=== PATIENT | female | born 1945 | race Caucasian/White ===

== ENCOUNTER 2016-10-11 11:05 | Emergency (ER) | payer MEDICARE ==
[2016-10-11 11:51] VITALS: BP 149/75
[2016-10-11] MEDS ORDERED: MECLIZINE HCL 25 MG TABLET PO ONE (13:26)
[2016-10-11 13:42] LABS: Hematocrit 43.8 % (37.0-47.0); Hemoglobin 14.8 gm/dL (12.5-16.0); Mean Cell Volume 89.6 fl (78-100); Mean Corpuscular Hemoglobin 30.3 pg (27-31); Mean Corpuscular Hgb Conc 33.8 g/dl (32-36); Mean Platelet Volume 9.4 fl (6.0-9.5); Neutrophil # 7.7 K/mm3 (1.3-6.0); Neutrophil % 63.9 % (42-75.0); Platelet Count 324 K/mm3 (150-450); Red Blood Count 4.89 M/mm3 (4.2-5.4); Red Cell Distribution Width 13.1 % (11.5-14.0); White Blood Count 12.1 K/mm3 (4.0-10.5)
[2016-10-11 14:01] LABS: Troponin I Less than 0.017 ng/ml (0.00-0.10)
[2016-10-11 14:04] LABS: ALT 26 U/L (19-67); AST 23 U/L (0-48); Albumin * 3.5 gm/dl (3.4-5.0); Alkaline Phosphatase * 70 U/L (50-170); Anion Gap 9.8 mmol/L (6.8-13.8); Bilirubin, Total 0.3 mg/dL (0.0-1.1); Blood Urea Nitrogen 16 mg/dL (3-23); Ca. Corrected For Albumin 9.8 mg/dL (8.4-10.2); Calcium * 9.7 mg/dL (7.9-10.9); Carbon Dioxide 33.6 mmol/L (24-32.6); Chloride 100 mmol/L (97-106); Glucose * 118 mg/dL (70-110); Potassium 3.4 mmol/L (3.4-4.6); Sodium 140 mmol/L (132-142); TSH * 1.381 uIU/mL (0.358-3.74); Total Protein 7.7 gm/dL (6.2-8.2)
--- NOTE | 2016-10-11 14:08 | ERNOTE ---
Dizziness ER Record Date of Service: 10/20/16 Presenting Symptoms: dizziness Time Seen by Provider: 10/11/16 13:06 Source: patient Exam Limitations: no limitations Immunizations: IMMUNIZATION HX Immunizations Up to Date Yes History of Influenza Vaccine No Hx Pneumococcal Vaccination Yes Allergies/Adverse Reactions: Allergies Allergy/AdvReac Type Severity Reaction Status Date / Time lisinopril Allergy Verified 10/11/16 11:51 Home Medications: HOME MEDICATIONS Bimatoprost [Lumigan] 1 drop OP HS 05/18/14 [Last Taken Unknown] Doxycycline Hyclate 50 mg PO DAILY 05/18/14 [Last Taken Unknown] Fluoxetine HCl [Sarafem] 2 mg PO DAILY 05/18/14 [Last Taken Unknown] Furosemide [Lasix] 20 mg PO BID 05/18/14 [Last Taken Unknown] Hydrochlorothiazide [Hydrodiuril] 25 mg PO BID 05/18/14 [Last Taken Unknown] Metoprolol Tartrate [Lopressor] 50 mg PO BID 05/18/14 [Last Taken Unknown] Multivitamin [Multi Vitamin Daily] 1 each PO DAILY 05/18/14 [Last Taken Unknown] [place]-3 Fatty Acids/Fish Oil [Fish Oil 1,000 mg Capsule] 2 tab PO DAILY [Last Taken Unknown] Omeprazole [Prilosec] 20 mg PO DAILY 05/18/14 [Last Taken Unknown] Potassium Chloride [K-Dur] 20 meq PO TID 05/18/14 [Last Taken Unknown] Pramipexole Di-HCl [Mirapex] 0.5 mg PO HS 05/18/14 [Last Taken Unknown] Simvastatin [Zocor] 20 mg PO HS 05/18/14 [Last Taken Unknown] amLODIPine BESYLATE [Norvasc] 10 mg PO DAILY 05/18/14 [Last Taken Unknown] Aspirin [Aspirin Chewable] 81 mg PO DAILY 01/26/16 [Last Taken Unknown] guaiFENesin [Mucinex] 600 mg PO BID 01/26/16 [Last Taken Unknown] Epinephrine [Epipen 2-Nirmal] 0.3 mg IJ ONCE PRN #1 pen.injctr 02/23/16 [Last Taken Unknown] predniSONE [Prednisone] 3 tab PO DAILY #15 tab 02/23/16 [Last Taken Unknown] - History of Present Illness Narrative: Percent with lightheadedness. She also states she's been unsteady on her feet. She denies any abdominal pain chest pain shortness of breath. Denies any fever. She does have slight pressure behind her eyes but she also has a history of glaucoma. Denies any loss of vision denies any visual changes. Denies any weakness to one side or the other side. Denies any present headache Timing and Duration: sudden onset Noted on awakening:: No Severity: max: mild Severity: currently: mild Associated Symptoms: Absent: nausea, vomiting, headache, weakness, numbness, sweating, light headedness, sense of confusion Sense of movement: Present: falling, vague. Absent: spinning Decreased ability to stand/walk:: Present: off balance. Absent: cannot walk, cannot stand, falling Modifying Factors - (Improves): Reports: nothing Modifying Factors - (Worsens): Reports: standing position Review of Systems - Review of Systems Constitutional: Absent: fever, chills, diaphoresis, weakness, fatigue, malaise, weight loss EYE: Absent: eye discharge, blurred vision, double vision, vision changes Cardiology: Absent: chest pain, palpitations, syncope, edema Gastrointestinal/Abdominal: Absent: nausea, vomiting, diarrhea, constipation, abdominal pain Neurological: Present: dizziness/light-headedness. Absent: headache, weakness, numbness, tingling, tremors All Other Systems: All systems neg except as marked - Patient's Past Medical History Patient History - Medical: Anxiety, Obesity Patient History - Cancer: No Hx of Cancer Patient History - Surgical Procedures: Cholecystectomy, Hysterectomy - Family History mom Family History - Cardiac/Respiratory: CVA/Stroke - Social History Living Situations: home Alcohol Use: none Drug Use: none Physical Exam - Physical Exam General Appearance: Present: wd/wn, alert, no apparent distress Eye Exam: Normal inspection: bilateral Ears, Nose, Throat: Present: normal ENT inspection, normal pharynx Neck: Present: normal inspection, nontender, supple Respiratory: Present: no respiratory distress, normal breath sounds, no accessory muscle use, chest nontender, lungs clear Cardiovascular/Chest: Present: regular rate, rhythm, no murmur, normal peripheral pulses Gastrointestinal/Abdominal: Present: normal bowel sounds, nontender, nondistended, soft, no organomegaly Back Exam: Present: normal inspection Neurological Exam: Present: alert, oriented, normal mood/affect, no motor/ sensory deficits Skin Exam: Present: normal color, warm/dry Lymphatic Exam: Present: no adenopathy ED Progress - Vital Signs Patient's Vital Signs:: I have reviewed the patient's vital signs. Vital Signs: Vital Signs 10/11/16 11:45 Temperature 36.1 C L Pulse Rate 70 Respiratory 16 Rate Blood Pressure 149/75 O2 Sat by Pulse 96 Oximetry - Progress/Reassessment Chief Complaint: Dizziness Progress:: Unchanged - she'll left the emergency department AGAINST MEDICAL ADVICE. He stands a risk of doing this she says she'll return back to ER with any change or worsening symptoms or if it's were discussed with her. Leaving AGAINST MEDICAL ADVICE such as stroke or cardiac issue arrhythmias and were all discussed with the patient. As this and she'll follow-up family doctor to 3 days return back to the ER with any change or worsening symptoms Departure Clinical Impression: Lightheadedness - Departure Disposition: Against medical advice
== END 2016-10-11 13:45 | disposition left against medical advice (07) ==
LOC: ER 11:05
DX: R42 Dizziness and giddiness (principal); Z53.29 Procedure and treatment not carried out because of patient's decision for other reasons

== ENCOUNTER 2017-06-24 16:27 | Emergency (ER) | payer MEDICARE ==
[2017-06-24 16:34] VITALS: BP 164/73
[2017-06-24] MEDS ORDERED: METHYLPREDNISOLONE ACETATE 80 MG/ML VIAL IM ONE (16:48)
[2017-06-24] MEDS ORDERED: ALBUTEROL SULFATE 2.5 MG/0.5 ML VIAL.NEB IH ONE ×2 (16:48→16:50)
[2017-06-24] MEDS ORDERED: METHYLPREDNISOLONE ACETATE 80 MG/ML VIAL ONE (16:50)
--- NOTE | 2017-06-24 16:53 | ERNOTE ---
Allergy Symptoms - ER Date of Service: 06/24/17 Presenting Symptoms: face swelling, throat swelling Time Seen by Provider: 06/24/17 16:41 Source: patient Exam Limitations: no limitations Immunizations: IMMUNIZATION HX Immunizations Up to Date Yes History of Influenza Vaccine No Hx Pneumococcal Vaccination Yes Allergies/Adverse Reactions: Allergies lisinopril Allergy (Verified 06/24/17 16:34) Home Medications: HOME MEDICATIONS Bimatoprost [Lumigan] 1 drop OP HS 05/18/14 [Last Taken Unknown] Furosemide [Lasix] 20 mg PO BID 05/18/14 [Last Taken Unknown] Hydrochlorothiazide [Hydrodiuril] 25 mg PO BID 05/18/14 [Last Taken Unknown] Metoprolol Tartrate [Lopressor] 50 mg PO BID 05/18/14 [Last Taken Unknown] Multivitamin [Multi Vitamin Daily] 1 each PO DAILY 05/18/14 [Last Taken Unknown] [place]-3 Fatty Acids/Fish Oil [Fish Oil 1,000 mg Capsule] 2 tab PO DAILY [Last Taken Unknown] Omeprazole [Prilosec] 20 mg PO DAILY 05/18/14 [Last Taken Unknown] Potassium Chloride [K-Dur] 20 meq PO TID 05/18/14 [Last Taken Unknown] Simvastatin [Zocor] 20 mg PO HS 05/18/14 [Last Taken Unknown] Aspirin [Aspirin Chewable] 81 mg PO DAILY 01/26/16 [Last Taken Unknown] guaiFENesin [Mucinex] 600 mg PO BID 01/26/16 [Last Taken Unknown] EPINEPHrine [Epipen 2-Nirmal] 0.3 mg IJ ONCE PRN #1 pen.injctr 02/23/16 [Last Taken Unknown] Albuterol Sulfate/Ipratropium [Duoneb 2.5-0.5MG/3ML Soln] 3 ml IH PRN 06/24/17 [ Last Taken Unknown] Budesonide/Formoterol Fumarate [Symbicort 160-4.5 Mcg Inhaler] 2 puff IH BID [Last Taken Unknown] Diphenhydramine HCl [Benadryl] 25 mg PO DAILY 06/24/17 [Last Taken Unknown] FLUoxetine HCL [Prozac] 20 mg PO DAILY 06/24/17 [Last Taken Unknown] Pramipexole Di-HCl [Mirapex] 0.25 mg PO HS 06/24/17 [Last Taken Unknown] amLODIPine BESYLATE [Norvasc] 10 mg PO DAILY 06/24/17 [Last Taken Unknown] predniSONE [Prednisone] 3 tab PO DAILY #9 tab 06/24/17 [Last Taken Unknown] - History of Present Illness Narrative: Pt. comes in with mouth swelling and facial rash and swelling after eating a caramel and cashew cookie at lunch today. Pt. denies any allergies to cashews or caramel and denies any allergies to other medicines. Pt. denies any SOB, CP , NVD, but states that she does have COPD and has been wheezing from that for about an hour now. Pt. denies any new exposure and denies touching any products containing her known allergen in it. Review of Systems - Review of Systems Constitutional: Present: no symptoms reported. Absent: fever, chills, weakness , fatigue, malaise EYE: Present: no symptoms reported ENT: Present: throat swelling, other - facial swelling. Absent: nose pain, nose congestion, nasal drainage Respiratory: Present: wheezing. Absent: shortness of breath, cough Cardiology: Present: no symptoms reported. Absent: chest pain, palpitations, edema Gastrointestinal/Abdominal: Present: no symptoms reported. Absent: nausea, vomiting, diarrhea Genitourinary: Present: no symptoms reported Musculoskeletal: Present: no symptoms reported. Absent: back pain, joint pain Skin: Present: no symptoms reported Neurological: Present: no symptoms reported. Absent: headache, dizziness/light- headedness, numbness, tingling All Other Systems: All systems neg except as marked - Patient's Past Medical History Patient History - Medical: Anxiety, Obesity Patient History - Cardiac/Respiratory: COPD, Hypertension, Hyperlipidemia, Home O2 Use Patient History - Cancer: No Hx of Cancer Patient History - Surgical Procedures: Cholecystectomy, Hysterectomy, Orthopedic Patient History - Other: None LMP (females 10-50): Menopausal - Family History mom Family History - Cardiac/Respiratory: CVA/Stroke - Social History Living Situations: home Abuse History: No History of abuse Psych History: No pertinent hx Smoking Status: Former smoker Alcohol Use: none Drug Use: none - Immunizations Immunizations Up to Date: Yes Hx Pneumococcal Vaccination: Yes History of Influenza Vaccine: No Physical Exam - Physical Exam General Appearance: Present: wd/wn, alert, no apparent distress Head Exam: Present: no evidence of injury, swelling - B cheeks and mouth Eye Exam: Normal inspection: bilateral, PERRL: bilateral, EOMI: bilateral Ears, Nose, Throat: Present: normal except -, other - oral erythema and tongue swelling mild pt. states is improving Neck: Present: normal inspection, nontender Respiratory: Present: no respiratory distress, no accessory muscle use, chest nontender, wheezing Cardiovascular/Chest: Present: regular rate, rhythm, no murmur, normal peripheral pulses Back Exam: Present: normal inspection, normal range of motion, no CVA tenderness , no vertebral tenderness Extremity Exam: Present: normal inspection, non-tender, normal range of motion, no edema Neurological Exam: Present: alert, oriented, normal mood/affect, no motor/ sensory deficits, chemistry technologist II-XII nml as tested, normal cerebellar test Skin Exam: Present: normal color, warm/dry. Absent: pallor, skin rash ED Progress - Date and Time Seen: Date and Time: 06/24/17 17:36 Pt. swelling much improved and still would rather take benedryl wonce she got home and not at this time. So educated pt. to take 2 benedryl every 6 hours for 24 hours and will start on prednisone taper. - Vital Signs Patient's Vital Signs:: I have reviewed the patient's vital signs. Vital Signs: Vital Signs 06/24/17 06/24/17 16:30 16:47 Temperature 36.7 C Pulse Rate 85 Respiratory 20 20 Rate Blood Pressure 164/73 O2 Sat by Pulse 96 97 Oximetry - Progress/Reassessment Chief Complaint: Allergic Reaction Departure Clinical Impression: Allergic reaction Qualifiers: Encounter type: initial encounter Qualified Code(s): T78.40XA - Allergy, unspecified, initial encounter Angio-edema Qualifiers: Encounter type: initial encounter Qualified Code(s): T78.3XXA - Angioneurotic edema, initial encounter - Departure Disposition: Home self-care Condition: Good Instructions: Angioedema, [id number] Additional Instructions: Please start taking benedryl 50 mg every 6 hours for 24 hours then start prednisone tomorrow, if your symptoms worsen take epi pen and call 911. If your symptoms are not completely resolved in 2 days please follow up with PCP. Referrals: Kim Burden PA [Primary Care Provider] - Prescriptions: predniSONE [Prednisone] 3 tab PO DAILY #9 tab
== END 2017-06-24 17:58 | disposition home or self-care (01) ==
LOC: ER 16:27
DX: T78.40XA Allergy, unspecified, initial encounter (principal); T78.3XXA Angioneurotic edema, initial encounter; I10 Essential (primary) hypertension; E78.5 Hyperlipidemia, unspecified